=== PATIENT | male | born 1945 | race Caucasian/White ===

== ENCOUNTER 2018-05-26 14:27 | Emergency (ER) | payer MEDICARE ==
[~2018-05-26 14:27] MED LIST: AEC81 PO; ALBOZ PO; FURO40TA5 PO; LISI-613 PO; METO25TA6 PO; NITR0.3T11 SL; RANO500T2 PO; ROPI2TAB2 PO; SIMV20TA6 PO
[2018-05-26 14:50] LABS: EOSINOPHILS % (AUTO) 4.5 % (0.0-8.0); HEMATOCRIT 40.9 % (42-54); LYMPHOCYTES % (AUTO) 12.2 % (21.0-51.0); MEAN CORPUSCULAR HEMOGLOBIN 31.3 pg (27.0-33.0); MEAN CORPUSCULAR HGB CONC 34.2 g/dL (32.0-36.0); MEAN CORPUSCULAR VOLUME 91.5 fL (79-99); MONOCYTES % (AUTO) 9.5 % (3.0-13.0); NEUTROPHILS % (AUTO) 72.8 % (40.0-77.0); NUCLEATED RED BLOOD CELLS 0.1 % (0.0-0.19); PLATELET COUNT (AUTO) 174 K/uL (130-400); RED BLOOD CELL COUNT(AUTO) 4.47 MIL/uL (4.50-6.20)
[2018-05-26 15:03] LABS: POTASSIUM 4.2 mmol/L (3.5-5.1)
[2018-05-26 15:08] LABS: ALBUMIN 3.5 g/dL (3.5-5.0); BILIRUBIN,TOTAL 0.7 mg/dL (0.2-1.0); TOTAL PROTEIN, SERUM 7.4 g/dL (6.0-8.3)
== END 2018-05-26 16:27 | disposition home or self-care (01) ==
LOC: EDH 14:27
DX: R07.9 Chest pain, unspecified (principal); I10 Essential (primary) hypertension; E78.5 Hyperlipidemia, unspecified; F41.9 Anxiety disorder, unspecified; K21.9 Gastro-esophageal reflux disease without esophagitis; Z88.8 Allergy status to other drugs, medicaments and biological substances
CPT/HCPCS: 36415; 80053; 82550; 84484; 85025; 93005

== ENCOUNTER → 2023-07-16 | Outpatient (CLI) | payer MEDICARE, OTHER ==
[~2023-07-16] MED LIST changes: -LISI-613 PO; +LISI20TA24 PO; -ROPI2TAB2 PO; +ROPI2TAB53 PO; +SIMV-43 PO; -SIMV20TA6 PO
[2023-07-16 21:43] VITALS: PULSE 70; RESP 16
[2023-07-16 22:25] VITALS: PULSE 59; RESP 12
[2023-07-16 23:05] VITALS: PULSE 59; RESP 12
[2023-07-16 23:36] VITALS: PULSE 54; RESP 12
[2023-07-17] VITALS (10 sets, daily range): PULSE 50–64; RESP 10–18
== END | disposition home or self-care (01) ==
LOC: SLP 20:21
PROVIDERS: ATTEND Internal Medicine Cardiovascular Disease
DX: G47.33 Obstructive sleep apnea (adult) (pediatric) (principal)
CPT/HCPCS: 95810

== ENCOUNTER → 2023-12-03 | Outpatient (CLI) | payer OTHER ==
[2023-12-03 22:20] VITALS: PULSE 60; RESP 14
[2023-12-03 23:05] VITALS: PULSE 55; RESP 15
[2023-12-03 23:11] VITALS: PULSE 53; RESP 13
[2023-12-03 23:44] VITALS: PULSE 54; RESP 14
[2023-12-03 23:58] VITALS: PULSE 57; RESP 18
[2023-12-04] VITALS (12 sets, daily range): PULSE 50–61; RESP 7–27
== END | disposition home or self-care (01) ==
LOC: SLP 21:21
PROVIDERS: ATTEND Internal Medicine Cardiovascular Disease
DX: G47.33 Obstructive sleep apnea (adult) (pediatric) (principal)
CPT/HCPCS: 95811

== ENCOUNTER → 2024-05-09 | Outpatient (CLI) | payer OTHER ==
--- NOTE | 2024-05-11 07:30 | HMCSR ---
APPROVED REPORT Laterality: Bilateral Indications r09.89 Doppler Spectral Velocity Analysis PSV / EDVPSV / EDV ECA (R) 92 / cm/sECA (L) 94 / cm/s dICA (R) 114 / 36 cm/sdICA (L) 50 / 15 cm/s Tamika (R) 78 / 21 cm/smICA (L) 42 / 15 cm/s pICA (R) 70 / 20 cm/spICA (L) 54 / 11 cm/s dCCA (R) 88 / 19 cm/sdCCA (L) 92 / 22 cm/s mCCA (R) 119 / 30 cm/smCCA (L) 112 / 28 cm/s pCCA (R) 119 / 25 cm/spCCA (L) 112 / 23 cm/s Vert (R) 50 / cm/sVert (L) 44 / cm/s Subl. (R) 134 / cm/sSubl. (L) 155 / cm/s ICA/CCA 0.96ICA/CCA 0.48 Technologist Impression Minimal to mild plaque noted in the bilateral carotids. Right and left ICAs appear patent, without hemodynamic significance. Bilateral vertebral arteries appear antegrade. Conclusion Minimal to mild plaque noted in the bilateral carotids. Right and left ICAs appear patent, without hemodynamic significance. Bilateral vertebral arteries appear antegrade. Conclusion Minimal to mild plaque noted in the bilateral carotids. Right and left ICAs appear patent, without hemodynamic significance. Bilateral vertebral arteries appear antegrade.
== END | disposition home or self-care (01) ==
LOC: SHCH 11:13
PROVIDERS: ATTEND Internal Medicine Cardiovascular Disease
DX: I65.23 Occlusion and stenosis of bilateral carotid arteries (principal); R09.89 Other specified symptoms and signs involving the circulatory and respiratory systems
CPT/HCPCS: 93880

== ENCOUNTER 2024-07-15 13:46 | Emergency (ER) | payer OTHER ==
[~2024-07-15] VITALS: Ht 182.9 cm; Wt 99.8 kg
--- NOTE | 2024-07-15 13:55 | ERN ---
General Chief Complaint: Chest Pain Stated Complaint: CP Time Seen by MD: 13:50 Source: patient History of Present Illness Initial Comments Patient is a 79-year-old gentleman coming in complaining of chest pain. Patient states that he was recently told he had elevated potassium. The last potassium check was 6.1 he also states that he took some Lokelma to help bring down his p otassium. Long with this he states that earlier today he started having chest pressure chest discomfort. He took one of his sublingual nitros which helped somewhat but not completely resolved his pain. Allergies: Coded Allergies: No Known Drug Allergies (Verified Allergy, Unknown, 03/14/16) metoprolol (Unverified Allergy, Unknown, 07/15/24) niacin (Unverified Allergy, Unknown, 07/15/24) Home Meds Active Scripts Metoprolol Tartrate (Metoprolol Tartrate) 25 Mg Tablet, 12.5 MG PO Q12H, #90 TAB 3 Refills Prov:Se ALVARADO II, MD 03/15/16 Ranolazine (RANEXA) 500 Mg Tab.er.12h, 500 MG PO BID, #90 TAB 3 Refills Prov:Se ALVARADO II, MD 03/15/16 Reported Medications Nitroglycerin (Nitroglycerin) 0.3 Mg Tab.subl, 0.3 MG SL AD, TAB.SL 03/15/16 [Alboz] No Conflict Check, 20 MG PO BID 03/14/16 Aspirin (ASPIRIN 81 MG ECTAB) 81 Mg Ectab, 81 MG PO HS, TAB.EC 03/14/16 Simvastatin (Simvastatin) 20 Mg Tablet, 20 MG PO HS, TAB 03/14/16 Ropinirole HCl (Ropinirole HCl) 2 Mg Tablet, 2 MG PO HS, TAB 03/14/16 Furosemide (Furosemide) 40 Mg Tablet, 40 MG PO HS, TAB 03/14/16 Lisinopril (Lisinopril) 20 Mg Tablet, 20 MG PO DAILY, TAB 03/14/16 Past Medical History Past Medical History: High Cholesterol, Heart Disease, Hypertension Past Surgical History: Appendectomy, Tonsillectomy Surgical History Other: KNEE, HIP, HEART STENTS ROS Dictation CONSTITUTIONAL: No chills, no fever, no weakness, no diaphoresis, no malaise. HEAD/FACE: No signs of trauma. EENT: No eye pain, no blurred vision, no tearing, no double vision, no ear pain, no ear discharge, no nose pain, no nasal congestion, no throat pain, no throat swelling, no mouth pain. RESPIRATORY: No cough, no orthopnea, no SOB, no stridor, no wheezing. CARDIOVASCULAR: chest pain, no edema, no palpitations, no syncope. GASTROINTESTINAL/ABDOMINAL: No abdominal pain, no constipation, no diarrhea, no nausea, no vomiting. GENITOURINARY: No abnormal discharge, no dysuria, no frequent urination, no hematuria. No complaints of pain in the genitals. MUSCULOSKELETAL: No back pain, no gout, no joint pain, no joint swelling, no muscle pain, no muscle stiffness, no neck pain. INTEGUMENTARY: No change in color, no change in hair/nails, no dryness, no lesion, no lumps, no rash. NEUROLOGICAL/PSYCH: No anxiety, not depressed, no emotional problem, no headache, no numbness, no pre-existing deficit, no history of seizures, no tremors, no weakness. HEMATOLOGIC/LYMPHATIC: Not anemic, no history of blood clots, no apparent bleeding, no bruising, glands not swollen. All Systems Negative, Except as Noted. Physical Exam Physical Exam Dictation VITAL SIGNS: Reviewed. GENERAL APPEARANCE: Alert, oriented x3, no acute distress, obese. HEAD AND FACE: Non-traumatic. EYES: PERRL, pink conjunctivas, eyelid no trauma, anterior chamber clear. EARS: Pinnas intact and no signs of trauma or erythema. Ear canals clear and no discharge. TMs no erythema. NOSE: No discharge, no bleeding. OROPHARYNX: Mouth normal, teeth no caries, tongue pink. Pharynx clear, no erythema. Tonsils no exudates, no abscesses noted. Mucous membrane moist. NECK: Supple, non-tender, no thyromegaly, no masses, no JVD, no bruits. BREAST: Deferred. CHEST: No tenderness, no crepitus, no paradoxical movement, no retractions. LUNGS: Clear, well-ventilated, symmetric, no rales, no wheezing, no rhonchi, no stridor, good breath sounds bilaterally. HEART: Regular rate, regular rhythm, no murmur, no gallops. VASCULAR: No peripheral edema. ABDOMEN: Soft, positive bowel sounds, nondistended, no guarding, nontender, no rebound, no masses no hepatomegaly, no splenomegaly, no Villegas's sign, no hernias. RECTAL: Deferred. GENITAL: Deferred. NEUROLOGICAL: Normal speech, gross motor function intact, gross sensory function intact. MUSCULOSKELETAL: Neck nontender, full range of motion, back nontender, full range of motion. EXTREMITIES: Nontender, full range of motion. SKIN: Color pink, dry, no turgor, no rash, no lacerations, no abrasions, no contusions. LYMPHATICS: Deferred. Results Laboratory and Microbiology Lab and Micro Result Laboratory Tests Test 07/15/24 14:00 07/15/24 16:20 White Blood Count 5.5 K/uL (4.8-10.8) Red Blood Count 4.45 MIL/uL (4.50-6.20) L Hemoglobin 14.2 g/dL (14.0-18.0) Hematocrit 41.4 % (42-54) L Mean Corpuscular Volume 93.0 fL (79-99) Mean Corpuscular Hemoglobin 31.9 pg (27.0-33.0) Mean Corpuscular Hemoglobin Concent 34.3 g/dL (32.0-36.0) Red Cell Distribution Width 11.8 % (11.0-15.5) Platelet Count 211 K/uL (130-400) Mean Platelet Volume 10.2 fL (7.5-10.5) Immature Granulocyte % (Auto) 0.4 % (0-1) Neutrophils (%) (Auto) 65.4 % (40.0-77.0) Lymphocytes (%) (Auto) 22.0 % (21.0-51.0) Monocytes (%) (Auto) 9.5 % (3.0-13.0) Eosinophils (%) (Auto) 2.0 % (0.0-8.0) Basophils (%) (Auto) 0.7 % (0.0-5.0) Neutrophils # (Auto) 3.6 K/uL (1.8-7.7) Lymphocytes # (Auto) 1.2 K/uL (1.0-4.8) Monocytes # (Auto) 0.5 K/uL (0.1-1.0) Eosinophils # (Auto) 0.11 K/uL (0.00-0.70) Basophils # (Auto) 0.04 K/uL (0.00-0.20) Absolute Immature Granulocyte (auto 0.02 K/uL (0-1) Nucleated Red Blood Cells 0.0 % (0.0-0.19) Prothrombin Time 10.5 SEC (9.6-11.6) Prothromb Time International Ratio 0.99 (0.85-1.15) Activated Partial Thromboplast Time 29.3 SEC (26.3-35.5) Sodium Level 137 mmol/L (136-145) Potassium Level 4.5 mmol/L (3.5-5.1) Chloride Level 104 mmol/L (101-111) Carbon Dioxide Level 28 mmol/L (21-32) Blood Urea Nitrogen 37 mg/dL (7-18) H Creatinine 1.4 mg/dL (0.5-1.3) H Glomerular Filtration Rate Calc 51 mL/min (>90) Random Glucose 110 mg/dL (70-105) H Total Calcium 8.7 mg/dL (8.5-10.1) Magnesium Level 2.10 mg/dL (1.80-2.40) Total Creatine Kinase 33 U/L (21-232) # Troponin I High Sensitivity 7.3 ng/L (4-75) 5 ng/L (4-75) B-Type Natriuretic Peptide < 5 pg/mL (0-100) Labs Reviewed?: Yes EKG/XRAY/US/CT/MRI EKG Comment 07/15/2024 time 1:37 p.m. Ventricular rate 65 Sinus rhythm [place] [address] wave elevation or depression X-RAY Comment [place] [id number] [address] IMAGING REPORT Signed PATIENT: FAM PAULSON MR#: [id number] : 1945 SEX: M AGE: 79 LOCATION: [facility] ORDER [id number] STATUS: REG ER REPORT#: [id number] SERVICE 1350 REASON: cp ORDERING PHYSICIAN: DONALDO ROSS MD PROCEDURE: CXR1VW - CHEST 1VW Exam Type: CHEST 1VW Clinical Information: cp Comparison: None Findings: The lungs are clear of infiltrates. The heart is normal in size. The bony and soft tissue structures of the chest are unremarkable. Impression: Clear lungs. DICTATED BY: SJ BENTON MD DATE: 07/15/241424 ELECTRONICALLY SIGNED BY: SJ BENTON MD DATE: 07/15/241428 [facility] MDM: Differential diagnosis: Wellness exam, anxiety, Rationale: Tests considered and ordered secondary to shared decision making include: Previous outside records reviewed: Old ER visits. Risk of complication and/or morbidity or mortality of patient management: None Patient is a 79-year-old gentleman coming in to be evaluated for chest pressure. He states that he was told two weeks ago that his potassium was 6.1 given some medication to lower it down. He states that he was nervous because of the potassium being high he was told to also discontinue his lisinopril and states he discontinued it momentarily and then started taking it again. Laboratory workup which includes cardiac workup that needed to be performed due to the in itial presentation of chest discomfort and anxiety was negative for acute findings. Patient does has a history of chronic renal failure in his why he was told to discontinue his lisinopril. ED Course Orders Procedure Category Date Status Time Cbc With Differential LAB 07/15/24 Complete 13:50 Prothrombin Time With LAB 07/15/24 Complete INR 13:50 B-Type Natriuretic LAB 07/15/24 Complete Peptide 13:50 Chest 1vw RAD 07/15/24 Resulted 13:50 12 Lead Ekg Tracing- EKG 07/15/24 Logged Technical 13:50 Magnesium LAB 07/15/24 Complete 13:50 Urinalysis Profile LAB 07/15/24 Logged 13:50 Partial LAB 07/15/24 Complete Thromboplastin Time 13:50 Basic Metabolic Panel LAB 07/15/24 Complete 13:50 Cardiac Panel LAB 07/15/24 Complete 13:50 Pantoprazole 40mg Inj PHA 07/15/24 Complete (Protonix 40mg Inj 16:00 Troponin I High LAB 07/15/24 Complete Sensitivity 15:42 Current Medications Medications (Trade) Dose Ordered Sig/Dafne Route PRN Reason Start Time Stop Time Status Last Admin Dose Admin Pantoprazole Sodium (PROTonix 40MG INJ) 40 mg ONCE ONCE IVP 07/15/24 16:00 07/15/24 16:01 DC Vital Signs Date Time Temp Pulse Resp B/P (MAP) Pulse Ox O2 Delivery O2 Flow Rate FiO2 07/15/24 13:46 98.2 69 16 131/69 98 Room Air 0 DX & DISP Disposition: Discharge Departure Impression: Primary Impression: Chronic renal failure Additional Impression: Hyperkalemia Condition: Stable Additional Instructions: You have been reviewed in the emergency department at [facility] after presenting with chest pain. After considering your history, your risk factors, your EKG and your blood test troponins, have been found to be at very low risk less than (1 in 100) of having a major adverse cardiac event (like heart attack) in the near future. In the " low risk" group, the risks of doing further tests and treatment as the inpatient outweighs the benefits. In many patients in the low risk group for the test of any sort or unnecessary, however he should discuss this further with his general practitioner who will understand the medical and personal backgrounds better. Because we have never declared you" no risk" we would suggest. 1 returning for medical review if you have further episodes of chest pain/arm pain or other concerning symptoms like dizziness, collapse, palpitations or shortness of breath. 2. Following up with your local doctor who will consider the need for further testing and will also ensure that any modifiable risk factors you may have for heart disease are optimally managed. Patient will be discharged in stable condition at the moment discharge patient states , no chest pain Referrals: CHIDI YANES MD (PCP) Time of Disposition: 17:13 DONALDO ROSS MD Jul 15, 2024 13:55
[2024-07-15 14:15] LABS: BASOPHILS # (AUTO) 0.04 K/uL (0.00-0.20); BASOPHILS % (AUTO) 0.7 % (0.0-5.0); EOSINOPHILS # (AUTO) 0.11 K/uL (0.00-0.70); HEMATOCRIT 41.4 % (42-54); IMMATURE GRANULOCYTE ABSOLUTE 0.02 K/uL (0-1); LYMPHOCYTES # (AUTO) 1.2 K/uL (1.0-4.8); MEAN CORPUSCULAR HEMOGLOBIN 31.9 pg (27.0-33.0); MEAN CORPUSCULAR HGB CONC 34.3 g/dL (32.0-36.0); MONOCYTES # (AUTO) 0.5 K/uL (0.1-1.0); MONOCYTES % (AUTO) 9.5 % (3.0-13.0); NEUTROPHILS # (AUTO) 3.6 K/uL (1.8-7.7); NEUTROPHILS % (AUTO) 65.4 % (40.0-77.0); PLATELET COUNT (AUTO) 211 K/uL (130-400); RED BLOOD CELL COUNT(AUTO) 4.45 MIL/uL (4.50-6.20); RED CELL DISTRIBUTION WIDTH 11.8 % (11.0-15.5); WHITE BLOOD COUNT (AUTO) 5.5 K/uL (4.8-10.8)
[2024-07-15 14:28] LABS: CREATININE 1.4 mg/dL (0.5-1.3); POTASSIUM 4.5 mmol/L (3.5-5.1)
--- NOTE | 2024-07-15 14:29 | HMCIMG ---
Exam Type: CHEST 1VW Clinical Information: cp Comparison: None Findings: The lungs are clear of infiltrates. The heart is normal in size. The bony and soft tissue structures of the chest are unremarkable. Impression: Clear lungs.
[2024-07-15 14:30] LABS: INR 0.99 (0.85-1.15); PROTHROMBIN TIME 10.5 SEC (9.6-11.6)
[2024-07-15 14:32] LABS: PARTIAL THROMBOPLASTIN TIME 29.3 SEC (26.3-35.5)
[2024-07-15 14:36] LABS: MAGNESIUM 2.1 mg/dL (1.80-2.40)
[2024-07-15 14:38] LABS: B-TYPE NATRIURETIC PEPTIDE < 5 pg/mL (0-100)
[2024-07-15 17:00] VITALS: BP 107/66; PULSE 75; RESP 18; TEMP 97.7; O2SAT 97
[2024-07-15] MEDS: PANTOPrazole 40 MG/VIAL IVP ONE (17:21)
[2024-07-15 17:27] LABS: APPEARANCE,URINE CLEAR (CLEAR); BILIRUBIN,URINE NEGATIVE (NEGATIVE); COLOR,URINE LIGHT-YELLOW (YELLOW); GLUCOSE, URINE (UA) NEGATIVE (NEGATIVE); KETONES,URINE NEGATIVE (NEGATIVE); LEUKOCYTE ESTERASE ,URINE NEGATIVE Leu/uL (NEGATIVE); NITRATE,URINE NEGATIVE (NEGATIVE); OCCULT BLOOD,URINE NEGATIVE (NEGATIVE); PH,URINE 5.5 (5.0-8.0); PROTEIN,URINE NEGATIVE (NEGATIVE); UROBILINOGEN,URINE 0.2 mg/dL (0.2-1.0)
[2024-07-15 17:29] LABS: ADD UA MICROSCOPIC NO
--- NOTE | 2024-07-15 20:21 | EKG ---
[facility] Test Date: 2024-07-15 Test Time: 13:37:50 Pat Name: FAM PAULSON Department: ED Room: Gender: M [employer]: [id number] : 1945 Requested By: DONALDO ROSS Order Number: [id number] Reading MD: Claude Campos Measurements Intervals [place] Rate: 65 P: 39 CO: 190 QRS: 10 QRSD: 98 T: 22 QT: 382 QTc: 399 Interpretive Statements Sinus rhythm BORDERLINE ST DEPRESSION, LATERAL LEADS Electronically Signed On 07-16-2024 20:38:09 CDT by Claude Campos Please click the below link to view image of tracing.
== END 2024-07-15 17:20 | disposition home or self-care (01) ==
LOC: EDH 13:46
DX: I12.9 Hypertensive chronic kidney disease with stage 1 through stage 4 chronic kidney disease, or unspecified chronic kidney disease (principal); N18.9 Chronic kidney disease, unspecified; E87.5 Hyperkalemia; E78.00 Pure hypercholesterolemia, unspecified; Z79.82 Long term (current) use of aspirin; Z79.899 Other long term (current) drug therapy; Z90.49 Acquired absence of other specified parts of digestive tract; Z90.89 Acquired absence of other organs; Z95.5 Presence of coronary angioplasty implant and graft; Z98.890 Other specified postprocedural states
CPT/HCPCS: 36415; 71045; 80048; 81003; 82550; 83735; 83880; 84484; 85025; 85610; 85730; 93005; 99283